=== PATIENT | female | born 2005 | race Two or more races ===

== ENCOUNTER 2025-01-03 12:19 | Emergency (ER) | payer OTHER ==
[~2025-01-03] VITALS: Ht 162.6 cm; Wt 54.4 kg
[2025-01-03] MEDS ORDERED: KETOROLAC TROMETHAMINE 30 MG VIAL IV ONE (13:30)
[2025-01-03] MEDS ORDERED: 0.9 % SODIUM CHLORIDE 1,000 ML IV SCH (13:30)
[2025-01-03] MEDS ORDERED: FAMOtidine 10 MG/ML (4ML VIAL) IV PUSH ONE (13:30)
[2025-01-03] MEDS ORDERED: KETOROLAC TROMETHAMINE 30 MG VIAL ONE (13:51)
[2025-01-03] MEDS ORDERED: FAMOTIDINE/PF 20 MG/2 ML VIAL ONE (13:51)
[2025-01-03 14:50] LABS: ALT/SGPT 19.0 U/L (12-78); AST/SGOT 18.0 U/L (15-37); BILIRUBIN TOTAL 0.94 mg/dL (0.3-1.2); BUN CREA RATIO 15.0 (7.0-25.0); CREATININE SERUM 0.71 mg/dL (0.55-1.02); GFR 103.91; GLOBULINA 3.4 G/DL (2.4-3.5); GLUCOSE FASTING 86.0 mg/dL (65-100); OSMOLALITY SERUM 280.0 MOSM/KG (275-295)
[2025-01-03 16:07] LABS: BASO % 0.6 % (0.1-1.2); EOS # 0.04 (0.04-0.54); EOS % 1.2 % (0.7-7.0); LYMPH # 1.47 (1.18-3.74); LYMPH % 45.8 % (19.3-53.1); MEAN PLATELET VOLUME 11.70 fl (9.4-12.4); MONO # 0.19 (0.24-0.82); MONO % 5.9 % (4.7-12.5); NEUT # 1.49 (1.56-6.13); NEUT % 46.5 % (34.0-71.1); RED CELL DISTRIBUTION WIDTH 11.8 % (11.6-14.4)
[2025-01-03] MEDS ORDERED: MAGNESIUM HYDROXIDE 400 MG/5 ML ML PO ONE (16:45)
[2025-01-03] MEDS ORDERED: LACTULOSE 20 G/30 ML BLIST.PACK PO ONE (16:45)
[2025-01-03] MEDS ORDERED: MAGNESIUM HYDROXIDE 30 ML BLIST.PACK PO ONE (18:00)
[2025-01-03] MEDS ORDERED: LACTULOSE 20 G/30 ML BLIST.PACK ONE (18:00)
== END 2025-01-03 18:19 | disposition home or self-care (01) ==
LOC: ER 12:19
PROVIDERS: General Practice
DX: K59.00 Constipation, unspecified (principal)